=== PATIENT | female | born 1945 | race Caucasian/White ===

== ENCOUNTER → 2024-01-26 17:45 | Outpatient (REF) | payer OTHER, SELFPAY | LOC: PAVMRI 17:45 | PROVIDERS: ATTENDING PHYSICIAN Physician Assistant Surgical; FAMILY PHYSICIAN Physician Assistant Medical | DX: M25.561 Pain in right knee (principal) | CPT/HCPCS: 73721 ==

== ENCOUNTER → 2024-02-14 13:28 | Outpatient (REF) | payer OTHER, SELFPAY | LOC: HWWDC 13:28 | PROVIDERS: ATTENDING PHYSICIAN Physician Assistant Medical | DX: Z12.31 Encounter for screening mammogram for malignant neoplasm of breast (principal) | CPT/HCPCS: 77063; 77067 ==

== ENCOUNTER → 2024-07-05 11:22 | Outpatient (REF) | payer OTHER, SELFPAY | LOC: HWRAD 11:22 | PROVIDERS: ATTENDING PHYSICIAN Physician Assistant Medical | DX: Z00.00 Encounter for general adult medical examination without abnormal findings (principal) | CPT/HCPCS: 77080 ==

== ENCOUNTER → 2025-02-01 10:13 | Outpatient (REF) | payer OTHER, SELFPAY | LOC: HWRCS 10:13 | PROVIDERS: ATTENDING PHYSICIAN Nuclear Medicine Nuclear Cardiology; FAMILY PHYSICIAN Physician Assistant Medical | DX: I10 Essential (primary) hypertension (principal); E78.5 Hyperlipidemia, unspecified | CPT/HCPCS: 93306 ==

== ENCOUNTER → 2025-02-14 12:52 | Outpatient (REF) | payer OTHER, SELFPAY | LOC: HWWDC 12:52 | PROVIDERS: ATTENDING PHYSICIAN Physician Assistant Medical; FAMILY PHYSICIAN Physician Assistant Medical | DX: Z12.31 Encounter for screening mammogram for malignant neoplasm of breast (principal) | CPT/HCPCS: 77063; 77067 ==

== ENCOUNTER 2025-04-29 09:11 | Emergency (ER) | payer OTHER, SELFPAY ==
[2025-04-29 09:16] VITALS: BP 175/96
[2025-04-29 11:15] VITALS: BMI 24.5
[2025-04-29 11:27] VITALS: BP 182/86
--- NOTE | 2025-04-29 11:28 | ED.GENMED ---
Addendum entered and electronically signed by Delfina Cavazos PA-C 05/02/25 06:30:
Urine culture grew out E. coli, sensitive to cefazolin, patient on Keflex, no treatment change
Original Note:
History of Present Illness
General
Chief Complaint: Swelling
Time Seen by Provider: 04/29/25 10:33
History of Present Illness
History of Present Illness:
80-year-old female with history of Crohn's disease and history of prolapsed bladder presenting to the emergency department for concern of lower extremity swelling and urinary tract infection. Patient reports that she has been battling the same
urinary tract infection for several weeks. Reports that she was initially on Macrobid, however after a few days and the Macrobid, did not settle right with her, so she was started on ciprofloxacin. She completed a 14-day course of ciprofloxacin,
and symptoms improved, however 3 days later symptoms returned so she was started on ciprofloxacin. She notes that she had 2 doses of the new medication, however has noticed that her legs have been getting increasingly swollen. Denies difficulty
breathing. Denies chest pain. Denies fever. Denies any significant abdominal pain. Denies additional acute medical complaints.
Past History
Past History
ED Past Medical History: HTN and Hypercholesterolemia
ED Past Surgical History: Gynecological and Orthopedic (back sx)
Social History
Tobacco: Non-smoker
Alcohol: Occasional
Drug: None
Personal:
Living: with family
Employment: Retired
Family History
Family History: Hypertension
Phy Exam
Physical Exam
Physical Exam:
General: Well-appearing, no clinical signs of dehydration, nontoxic and in no acute distress
HEENT: protecting airway
Neck: appears supple
CV: Normal heart rate, regular rhythm, no evidence of cyanosis
Resp: No accessory muscle use, no increased work of breathing, lungs clear to auscultation bilaterally
Abd: Soft and non-distended, no tenderness to palpation
Extremities: No deformities, +2 pitting edema bilaterally
Neuro: alert, no focal neurologic deficit
: deferred
Rectal: deferred
Psych: Normal affect
Skin: Intact
Scores
Heart Failure Risk
Heart Failure Risk Score: Not Applicable
Course
Orders/Labs/Results
Orders:
Orders
04/29/25 11:15
Complete Blood Count/With Diff Urgent
Comprehensive Metabolic Panel Urgent
NT-proBNP Urgent
04/29/25 11:18
Urinalysis Reflex To Culture Urgent
Date Specimen was Collected: 04/29/25
Time Specimen was Collected: 11:15
Urine Microscopic Reflex Cult Urgent
Urine Culture Urgent
DIANNE Source: U
Specimen Description:
Date Specimen was Collected: 04/29/25
Time Specimen was Collected: 11:15
04/29/25 13:01
Cefepime HCl [Maxipime] 2,000 mg IV NOW STA
Abnormal Lab Results
04/29/25 04/29/25
11:15 11:18
RBC 4.05 L 10^6/uL
(4.20-5.40)
MCHC 32.4 L g/dL
(33.0-37.0)
Absolute Monos (auto) 0.7 H 10^3/uL
(0.1-0.6)
Monocytes % 11.0 H %
(1.7-9.3)
Potassium 3.2 L mmol/L
(3.5-5.1)
Ur Occult Blood Reflex 1+ A
(Negative)
Leukocyte Esterase Rfl 3+ A
(Negative)
Urine Albumin (Reflex) 1+ A
(Neg - Trace)
04/29/25 11:15
04/29/25 11:15
Vital Signs
Initial and Last Documented VS:
Initial Vital Signs
Temp Pulse Resp BP Pulse Ox
98.0 F 66 16 175/96 98
04/29/25 09:16 04/29/25 09:16 04/29/25 09:16 04/29/25 09:16 04/29/25 09:16
Last Documented Vital Signs
Temp Pulse Resp BP Pulse Ox
98.0 F 61 16 182/86 98
04/29/25 09:16 04/29/25 11:27 04/29/25 11:27 04/29/25 11:27 04/29/25 11:32
MDM/Problems Addressed
MDM/Problems Addressed:
80-year-old female with history of Crohn's disease and bladder prolapse with prior history of UTI presenting for lower extremity swelling and concern of UTI. Vital signs on arrival are significant for high blood pressure.
On exam patient is resting comfortably, no acute distress. Patient nontoxic. She notes that her urinary symptoms have overall improved, however her main concern was the lower extremity swelling. From an infection standpoint, currently afebrile,
no reproducible tenderness to the abdomen, without present concern for systemic infection. Suspect that the lower extremity swelling could be side effect from the ciprofloxacin. Acute kidney injury is also consideration. Will screen with
laboratory analysis. No additional signs of volume overload on exam without present concern for congestive heart failure. Will also recheck patient's urine.
13:00 -patient's labs are unremarkable with normal renal function. Unremarkable BNP. Urine continues to show sign of infection. With the possibility that ciprofloxacin could be causing swelling, we will stop Cipro and start on cephalosporin.
Will administer 1 dose of cefepime here given duration of patient's symptoms, and sent prescription for cephalexin. Otherwise stable for discharge with supportive therapy of lower extremity swelling including compression socks and elevation.
Return precautions discussed and patient verbalized understanding
*Pulse Oximetry
SaO2: 98
Oxygen Mode of Delivery: Room air
Patient hypoxic: no
*Critical Care Note
Total Time (30-74mins, 75-104mins- exclusive of procedures): Not Applicable
ED Attending Note
-
Portions of this chart may have been created with voice recognition software.� Occasional wrong word or��sound alike� substitutions may have occurred due to the inherent limitations of voice recognition software.
Discharge Plan
Departure
Patient Disposition: Home (Routine Discharge)
Date of Disposition: 04/29/25
Time of Disposition: 13:04
Patient with high blood pressure during this ER visit?: Yes
Condition: Good
Discharge Problem:
Urinary tract infection, Dependent edema
Instructions: Dependent Edema (DC), Urinary tract infection in adults - ED (DC), BLOOD PRESSURE
Prescriptions:
New
cephalexin 500 mg capsule
500 mg PO BID 10 Days Qty: 20 0RF
No Action
guaifenesin [Mucinex] 1,200 MG tablet extended release 12hr
1,200 mg PO DAILY
rabeprazole [AcipHex] 20 MG tablet,delayed release (DR/EC)
20 mg PO DAILY
propranolol 10 MG tablet
10 mg PO DAILYPRN PRN (Reason: palpitations)
guaifenesin [Mucus Relief ER] 600 MG tablet extended release 12hr
600 mg PO DAILYPRN PRN (Reason: allergies)
fluticasone propionate 1 SPRAY spray,suspension
1 spray intranasal DAILY
lisinopril 20 MG tablet
20 mg PO DAILY Qty: 0 0RF
Rx Instructions:
Hold if systolic blood pressure <130 while on Oxycodone.
amitriptyline 10 MG tablet
10 mg PO HS
simvastatin 20 MG tablet
40 mg PO HS
Vitamin D3 (cholecalciferol):
125 mcg PO DAILY
Cbd
1,000 mg PO DAILYPRN PRN (Reason: pain)
Cbd Salve
250 mg topical DAILYPRN PRN (Reason: pain)
mupirocin 1 APPLIC ointment
1 applic intranasal BID Qty: 1 0RF
Patient Comments:
last completed 09/01/21 am of surgery, performed BID 3 days prior to surgery date
sennosides [senna] 1 TABLET tablet
2 tab PO BIDPRN PRN (Reason: constipation) 0RF
Rx Instructions:
Take as needed for constipation unrelieved by Colace.
lidocaine [Aspercreme (lidocaine)] 1 PATCH adhesive patch,medicated
2 patch topical DAILY PRN (Reason: knee pain) Qty: 14 0RF
Rx Instructions:
Over the counter. Remove nightly.
Apply to sides of L knee. Do not place over incision.
aspirin 325 MG tablet
325 mg PO DAILY Qty: 28 0RF
Rx Instructions:
Take daily x4 weeks for blood clot prevention.
meloxicam 15 MG tablet
15 mg PO DAILY Qty: 14 0RF
Rx Instructions:
Take with food.
Do not take within 2 hours of Aspirin post-surgery.
docusate sodium 100 MG capsule
100 mg PO BID 0RF
gabapentin 100 MG capsule
200 mg PO TID Qty: 30 0RF
oxycodone 5 MG tablet
5 mg PO Q4HPRN PRN (Reason: moderate-severe pain) Qty: 30 0RF
Rx Instructions:
1 tab moderate pain or 2 if pain severe
Dx total joint revision
ongoing therapy
acetaminophen 500 MG tablet
1,000 mg PO Q6H Qty: 0 0RF
Rx Instructions:
Do not exceed >4000 mg daily.
Referrals:
Katie Minor PA-C [Family Provider, Family Practice]
Activity Restrictions/Additional Instructions:
You were seen in the emergency department for urinary symptoms and lower extremity swelling.
You were found to have reassuring physical exam and laboratory analysis. We suspect that this could be from your recent antibiotics so we change her antibiotic to cephalexin. Please take as directed
Please follow-up closely with your primary care physician.
Return to the emergency department for any worsening of your symptoms, or any development of chest pain, difficulty breathing, abdominal pain with persistent vomiting and inability to tolerate food or liquid by mouth (concern for dehydration),
weakness, headache or confusion, fever greater than 100.4, or any additional symptoms that are concerning to you.
Thank you for choosing [facility].
Interventions
Interventions:
*Risk Screen - Suicide Last Done: 04/29/25 09:17
*General Assessment Last Done: 04/29/25 11:16
*Neglect/Abuse Screening Last Done: 04/29/25 09:17
*ED- Fall Risk Assessment Last Done: 04/29/25 11:16
*ED COVID-19 Vaccine History Last Done: 04/29/25 11:16
*ED Influenza Vaccine History Last Done: 04/29/25 11:16
ED- Cardiac Assessment Last Done: 04/29/25 11:55
ED- Pulmonary Assessment Last Done: 04/29/25 11:55
ED-Skin Assessment Last Done: 04/29/25 11:55
Discharge Date and Time
Print Language: MACEDONIAN
[2025-04-29 11:41] LABS: Hematocrit 37.4 % (37.0-47.0); Hemoglobin 12.1 g/dL (12.0-16.0); Mean Corp Hgb Conc. 32.4 g/dL (33.0-37.0); Mean Corpuscular Volume 92.3 fL (81.0-99.0); Nucleated Red Blood Cells % 0 %; Platelet Count 368 10^3/uL (130-400); Red Cell Dist. Width 13.9 % (11.5-14.5)
[2025-04-29 11:56] LABS: ALT (SGPT) 17 U/L (0-35); AST (SGOT) 24 U/L (14-36); Albumin 3.8 g/dl (3.5-5.0); Alkaline Phosphatase 62 U/L (38-126); Blood Urea Nitrogen 8 mg/dl (7-17); Calcium 9.7 mg/dl (8.4-10.2); Carbon Dioxide 30 mmol/L (22-30); Chloride 105 mmol/L (98-107); Estimated Creatinine Clearance 56 ml/min; Glucose 85 mg/dl (70-99); Potassium 3.2 mmol/L (3.5-5.1); Sodium 140 mmol/L (135-145); Total Protein 6.3 g/dl (6.3-8.2); eGFR > 60.00
[2025-04-29 12:04] LABS: Urine Character Slightly Cloudy (Clear)
[2025-04-29] MEDS: MAXIPIME 2000 MG IV (13:16)
[2025-04-29 13:42] LABS: Urine White Cell >100 /HPF (0-5)
== END 2025-04-29 13:45 | disposition home or self-care (01) ==
LOC: EMR 09:11
PROVIDERS: EMERGENCY PHYSICIAN Student in an Organized Health Care Education/Training Program; FAMILY PHYSICIAN Physician Assistant Medical
DX: N39.0 Urinary tract infection, site not specified (principal); B96.20 Unspecified Escherichia coli [E. coli] as the cause of diseases classified elsewhere; R60.0 Localized edema; I10 Essential (primary) hypertension; E78.00 Pure hypercholesterolemia, unspecified; K50.90 Crohn's disease, unspecified, without complications; Z82.49 Family history of ischemic heart disease and other diseases of the circulatory system; Z87.440 Personal history of urinary (tract) infections
CPT/HCPCS: 99284; 96374; 80053; 81003; 81015; 83880; 85025; 87077; 87086; 87186

== ENCOUNTER 2025-06-22 14:28 | Emergency (ER) | payer OTHER, SELFPAY ==
[2025-06-22 14:38] VITALS: BP 191/88
[2025-06-22 15:03] LABS: Hematocrit 37.6 % (37.0-47.0); Hemoglobin 12.6 g/dL (12.0-16.0); Mean Corp Hgb Conc. 33.5 g/dL (33.0-37.0); Mean Corpuscular Volume 86.2 fL (81.0-99.0); Nucleated Red Blood Cells % 0 %; Platelet Count 328 10^3/uL (130-400); Red Cell Dist. Width 12.6 % (11.5-14.5)
[2025-06-22 15:14] LABS: Urine Character Cloudy (Clear)
[2025-06-22 15:17] LABS: ALT (SGPT) 28 U/L (0-35); AST (SGOT) 31 U/L (14-36); Albumin 4.2 g/dl (3.5-5.0); Alkaline Phosphatase 77 U/L (38-126); Blood Urea Nitrogen 9 mg/dl (7-17); Calcium 10.3 mg/dl (8.4-10.2); Carbon Dioxide 28 mmol/L (22-30); Chloride 105 mmol/L (98-107); Glucose 113 mg/dl (70-99); Potassium 3.2 mmol/L (3.5-5.1); Sodium 140 mmol/L (135-145); Total Protein 6.9 g/dl (6.3-8.2); eGFR > 60.00
[2025-06-22 15:25] LABS: Urine Red Blood Cell 0-2 /HPF (0-2); Urine White Cell 80-90 /HPF (0-5)
[2025-06-22 15:54] LABS: Urine Squamous Cell 0-2 /LPF (Few)
[2025-06-22] MEDS: AUGMENTIN 875 MG/125 MG 1 TABLET PO (19:24)
--- NOTE | 2025-06-22 20:10 | ED.GENMED ---
Addendum entered and electronically signed by Addi Paz PA-C 06/26/25 06:42:
Urine culture shows greater than 100,000 colony-forming units of gram-negative bacilli. On Augmentin. Sensitivities pending
Original Note:
History of Present Illness
General
Chief Complaint: Urinary Symptoms
Source: patient and spouse
Exam Limitations: none
Time Seen by Provider: 06/22/25 17:17
Nursing documentation reviewed up to this point in time: agreed with
History of Present Illness
History of Present Illness:
The patient is a 80-year-old female who reports that she ' keeps getting urinary tract infections' over the last few months despite taking multiple rounds of oral antibiotics. Patient reports that her doctor told her to come to the ER for ' IV
antibiotics.' The patient reports that she has an appointment with urology but unfortunately it is not until the end of June. Patient denies fever, chills, nausea, vomiting and flank pain. Patient denies blood in her urine. Patient reports
she feels well. I was able to review patient's urine culture and sensitivities that were resulted today. Her urine culture showed Klebsiella that was sensitive to multiple antibiotics such as Augmentin, Levaquin and nitrofurantoin. Patient
expresses to me that she is very angry that she had to wait in the emergency department many hours to be seen. She is frequently asking me why we do not have more staff. I explained to the patient that I am here now to see her and tried to give
her some reassurance. Patient has told the staff that she is going to make complaints.
Past History
Past History
ED Past Medical History: HTN, Hypercholesterolemia and Other (Crohn's disease)
ED Past Surgical History: Gynecological and Orthopedic (back sx)
Social History
Tobacco: Non-smoker
Alcohol: Occasional
Drug: None
Personal:
Living: with family
Employment: Retired
Family History
Family History: Hypertension
Review of Systems
Review of Systems
Allergies reviewed?: Yes
All Other Systems: ROS reviewed and negative except as documented in HPI and ROS
Constitutional: Reports no symptoms
EENT: Reports no symptoms
Respiratory: Reports no symptoms
Cardiac: Reports no symptoms
ABD/GI: Reports no symptoms
: Reports no symptoms
Musculoskeletal: Reports no symptoms
Skin: Reports no symptoms
Neurological: Reports no symptoms
Endocrine: Reports no symptoms
Hematologic/Lymphatic: Reports no symptoms
Psychiatric: Reports no symptoms
Phy Exam
Physical Exam
Physical Exam:
Physical Exam
General: no apparent distress, not acutely ill. Appears extremely well and comfortable
Neck: supple.
Heart: Appears well-perfused
Lungs: no acute respiratory distress.
Abdomen: normal bowel sounds. not tender. no CVAT
Neuro: alert and oriented. no focal neurological deficits
Skin: no rash
Psychiatric: well kept. interactive and cooperative
Extremities: no edema.
Course
Orders/Labs/Results
Orders:
Orders
06/22/25 14:52
Complete Blood Count/With Diff Urgent
Comprehensive Metabolic Panel Urgent
Urinalysis Reflex To Culture Urgent
Date Specimen was Collected: 06/22/25
Time Specimen was Collected: 14:42
Urine Microscopic Reflex Cult Urgent
Urine Culture Urgent
DIANNE Source: U
Specimen Description:
Date Specimen was Collected: 06/22/25
Time Specimen was Collected: 14:42
06/22/25 19:07
Amoxicillin 250 mg/Clav 125 mg [Augmentin 250 mg/125 mg] 1 tablet PO NOW STA
06/22/25 19:19
Amoxicillin 875 mg/Clav 125 mg [Augmentin 875 mg/125 mg] 1 tablet .ROUTE .STK-MED ONE
06/22/25 19:22
Amoxicillin 875 mg/Clav 125 mg [Augmentin 875 mg/125 mg] 1 tablet PO NOW STA
Abnormal Lab Results
06/22/25
14:52
Absolute Monos (auto) 0.8 H 10^3/uL
(0.1-0.6)
Monocytes % 9.8 H %
(1.7-9.3)
Potassium 3.2 L mmol/L
(3.5-5.1)
Glucose 113 H mg/dl
(70-99)
Calcium 10.3 H mg/dl
(8.4-10.2)
Ur Occult Blood Reflex 2+ A
(Negative)
Urine Nitrite (Reflex) Positive A
(Negative)
Urine Bilirubin 1+ A
(Negative)
Leukocyte Esterase Rfl 3+ A
(Negative)
Urine WBC (Reflex) 80-90 A /HPF
(0-5)
Urine Bacteria (Reflex) Many A
(Negative)
Urine Albumin (Reflex) 2+ A
(Neg - Trace)
06/22/25 14:52
06/22/25 14:52
Vital Signs
Initial and Last Documented VS:
Initial Vital Signs
Temp Pulse Resp BP Pulse Ox
98.4 F 75 18 191/88 96
06/22/25 14:38 06/22/25 14:38 06/22/25 14:38 06/22/25 14:38 06/22/25 14:38
Last Documented Vital Signs
Temp Pulse Resp BP Pulse Ox
98.4 F 75 18 191/88 96
06/22/25 14:38 06/22/25 14:38 06/22/25 14:38 06/22/25 14:38 06/22/25 14:38
MDM/Problems Addressed
Differential Diagnosis Includes:
Chronic UTI, acute UTI
MDM/Problems Addressed:
Patient presents with history of multiple UTIs
Chronic conditions affecting care: HTN
Acute Exacerbation and/or Progression of Chronic Illness:
Patient is acutely hypertensive likely due to being extremely frustrated that she had to wait in the ED for several hours. There is no sign of chest pain, shortness of breath, heart failure or neurological impairment.
Acute Exacerbation and/or Progression of Chronic Illness: HTN
*Pulse Oximetry
SaO2: 96
Oxygen Mode of Delivery: Room air
Patient hypoxic: no
*EKG
Interpreted by ED Provider?: NA
*Cyberathlete Interpretation
Rate: Cyberathlete- N/A
*Critical Care Note
Total Time (30-74mins, 75-104mins- exclusive of procedures): Not Applicable
Data Reviewed
Review of Other/Old Records Reveals: Labs (Recent urine culture data reviewed by me which showed Klebsiella positive)
Source: patient and spouse
Patient Management
Social determinants of health affecting care: Living situation and Strong social support
Escalation/DeEscalation of care consider admission/obs:
I had an extremely long conversation with the patient telling her that if her doctor wanted her to get IV antibiotics then her doctor likely wanted her to be admitted to the hospital. I explained to the patient that if she has been on multiple
rounds of oral antibiotics and nothing has cleared the infection, that it would not be unreasonable to admit her for IV antibiotics and do a further workup. With this, patient started to cry and told me over and over again that she does not want to
be admitted. She reports that she feels well and has things to do at home and did not expect to have to stay here. Patient is also worried about the weather, as it is snowing outside.
Patient adamantly does not want to be admitted to the hospital. Given that her recent culture shows sensitivity to Augmentin, decision made to start the patient on Augmentin. I told patient she must return immediately with any fevers, chills,
nausea vomiting. Additionally, I told the patient that she must see her doctor this Wednesday to have her urine rechecked and have her blood pressure rechecked.
ED Attending Note
-
Portions of this chart may have been created with voice recognition software.� Occasional wrong word or��sound alike� substitutions may have occurred due to the inherent limitations of voice recognition software.
Discharge Plan
Departure
Patient Disposition: Home (Routine Discharge)
Date of Disposition: 06/22/25
Time of Disposition: 19:08
Patient with high blood pressure during this ER visit?: Yes
Condition: Good
Covid-19: Not Applicable
Discharge Problem:
Acute UTI
Instructions: Urinary Tract Infection, Adult (DC), BLOOD PRESSURE
Prescriptions:
New
amoxicillin-pot clavulanate 875-125 mg tablet
1 tab PO BID Qty: 13 0RF
No Action
guaifenesin [Mucinex] 1,200 MG tablet extended release 12hr
1,200 mg PO DAILY
rabeprazole [AcipHex] 20 MG tablet,delayed release (DR/EC)
20 mg PO DAILY
propranolol 10 MG tablet
10 mg PO DAILYPRN PRN (Reason: palpitations)
guaifenesin [Mucus Relief ER] 600 MG tablet extended release 12hr
600 mg PO DAILYPRN PRN (Reason: allergies)
fluticasone propionate 1 SPRAY spray,suspension
1 spray intranasal DAILY
lisinopril 20 MG tablet
20 mg PO DAILY Qty: 0 0RF
Rx Instructions:
Hold if systolic blood pressure <130 while on Oxycodone.
amitriptyline 10 MG tablet
10 mg PO HS
simvastatin 20 MG tablet
40 mg PO HS
Vitamin D3 (cholecalciferol):
125 mcg PO DAILY
Cbd
1,000 mg PO DAILYPRN PRN (Reason: pain)
Cbd Salve
250 mg topical DAILYPRN PRN (Reason: pain)
mupirocin 1 APPLIC ointment
1 applic intranasal BID Qty: 1 0RF
Patient Comments:
last completed 09/01/21 am of surgery, performed BID 3 days prior to surgery date
sennosides [senna] 1 TABLET tablet
2 tab PO BIDPRN PRN (Reason: constipation) 0RF
Rx Instructions:
Take as needed for constipation unrelieved by Colace.
lidocaine [Aspercreme (lidocaine)] 1 PATCH adhesive patch,medicated
2 patch topical DAILY PRN (Reason: knee pain) Qty: 14 0RF
Rx Instructions:
Over the counter. Remove nightly.
Apply to sides of L knee. Do not place over incision.
aspirin 325 MG tablet
325 mg PO DAILY Qty: 28 0RF
Rx Instructions:
Take daily x4 weeks for blood clot prevention.
meloxicam 15 MG tablet
15 mg PO DAILY Qty: 14 0RF
Rx Instructions:
Take with food.
Do not take within 2 hours of Aspirin post-surgery.
docusate sodium 100 MG capsule
100 mg PO BID 0RF
gabapentin 100 MG capsule
200 mg PO TID Qty: 30 0RF
oxycodone 5 MG tablet
5 mg PO Q4HPRN PRN (Reason: moderate-severe pain) Qty: 30 0RF
Rx Instructions:
1 tab moderate pain or 2 if pain severe
Dx total joint revision
ongoing therapy
acetaminophen 500 MG tablet
1,000 mg PO Q6H Qty: 0 0RF
Rx Instructions:
Do not exceed >4000 mg daily.
cephalexin 500 mg capsule
500 mg PO BID 10 Days Qty: 20 0RF
Referrals:
Katie Minor PA-C [Family Provider, Family Practice]
Activity Restrictions/Additional Instructions:
We offered to admit you to the hospital for IV antibiotics, however, you did not want to stay.
Please return to the emergency department as soon as possible IF you develop fevers, chills, nausea or vomiting.
If you feel well throughout the weekend, please see your doctor this Wednesday to have your urine rechecked to see if the infection has cleared
Interventions
Interventions:
*General Assessment Last Done: 06/22/25 14:38
*Neglect/Abuse Screening Last Done: 06/22/25 14:38
*ED COVID-19 Vaccine History Last Done: 06/22/25 14:38
*ED Influenza Vaccine History Last Done: 06/22/25 14:38
*Risk Screen - Suicide (C-SSRS) Last Done: 06/22/25 14:38
Discharge Date and Time
Discharge Date/Time: 06/22/25 19:33
Print Language: [place] IR[place]
== END 2025-06-22 19:33 | disposition home or self-care (01) ==
LOC: EMR 14:28
PROVIDERS: Emergency Medicine; EMERGENCY PHYSICIAN Emergency Medicine; FAMILY PHYSICIAN Physician Assistant Medical
DX: N39.0 Urinary tract infection, site not specified (principal); E78.00 Pure hypercholesterolemia, unspecified; I10 Essential (primary) hypertension; K50.90 Crohn's disease, unspecified, without complications; K21.9 Gastro-esophageal reflux disease without esophagitis; K58.9 Irritable bowel syndrome, unspecified; M19.90 Unspecified osteoarthritis, unspecified site; F41.9 Anxiety disorder, unspecified; F32.A Depression, unspecified; Z87.440 Personal history of urinary (tract) infections
CPT/HCPCS: 99283; 80053; 81003; 81015; 85025; 87077; 87086; 87186